=== PATIENT | female | born 1955 | race Caucasian/White ===

== ENCOUNTER 2020-04-01 20:10 | Emergency (ER) | payer MEDICARE ==
[2020-04-01 20:40] VITALS: RESP 18
[2020-04-01] MEDS ORDERED: DEXAMETHASONE SOD PHOSPHATE 10 MG/ML 1 ML VIAL IM STA (20:44)
--- NOTE | 2020-04-01 21:34 | ED ---
General Adult HPI - General Chief complaint: Allergic Reaction Stated complaint: Bee Sting Time Seen by Provider: 04/01/20 20:25 Source: patient, RN notes reviewed, old records reviewed Mode of arrival: ambulatory Limitations: no limitations - History of Present Illness Initial comments: 64-year-old female with history of COPD, oxygen dependent, history of ALLERGY to bee stings presents after being stung twice in the shoulder. Patient had administered Benadryl and epinephrine prior to arrival. The bee sting occurred at approximately 7 PM. She administered the epinephrine prior to severe symptom onset. She denied vomiting or worsening dyspnea. She does have baseline dyspnea secondary to COPD and is currently on home oxygen. She denies tongue or lip swelling. She has no complaints time my evaluation. No chest pain or dyspnea. No abdominal pain nausea vomiting. No rash. - Related Data Previous Rx's Medication Instructions Recorded EPINEPHrine (Auto Inject) [Epipen] 0.3 mg IM ONCE PRN #2 pen 04/01/20 methylPREDNISolone Dose Pack 4 mg PO DIRECTED #21 package 04/01/20 [Medrol Dose Pack] Allergies Allergy/AdvReac Type Severity Reaction Status Date / Time bee venom protein (honey bee) Allergy Anaphylaxis Verified 04/01/20 20:18 Review of Systems ROS Statement: Those systems with pertinent positive or pertinent negative responses have been documented in the HPI. ROS Other: All systems not noted in ROS Statement are negative. Past Medical History Past Medical History: Blood Disorder, Chest Pain / Angina, COPD Additional Past Medical History / Comment(s): pt is O2 dependent 1L History of Any Multi-Drug Resistant Organisms: None Reported Past Surgical History: Orthopedic Surgery Additional Past Surgical History / Comment(s): right leg pins Past Psychological History: No Psychological Hx Reported Smoking Status: Former smoker Past Alcohol Use History: Daily, Occasional Past Drug Use History: None Reported General Exam Limitations: no limitations General appearance: alert, in no apparent distress Head exam: Present: atraumatic, normocephalic Eye exam: Present: normal appearance, PERRL ENT exam: Present: normal exam Neck exam: Present: normal inspection. Absent: tenderness, meningismus Respiratory exam: Present: decreased breath sounds. Absent: respiratory distress Cardiovascular Exam: Present: regular rate, normal rhythm GI/Abdominal exam: Present: soft. Absent: distended, tenderness Extremities exam: Present: normal inspection, normal capillary refill. Absent: pedal edema, calf tenderness Neurological exam: Present: alert, oriented X3, CN II-XII intact. Absent: motor sensory deficit Psychiatric exam: Present: normal affect, normal mood Skin exam: Present: warm, dry, intact. Absent: cyanosis, diaphoretic Course Vital Signs 04/01/20 04/01/20 04/01/20 20:11 20:30 21:27 Temperature 98.3 F Pulse Rate 98 104 H 97 Respiratory 16 18 18 Rate Blood Pressure 159/85 118/95 120/69 O2 Sat by Pulse 97 98 96 Oximetry 04/01/20 22:10 Temperature 98.0 F Pulse Rate 98 Respiratory 18 Rate Blood Pressure 121/80 O2 Sat by Pulse 97 Oximetry Medical Decision Making - Medical Decision Making 64-year-old female presenting for evaluation of suspected ALLERGIC reaction. Patient did take Benadryl and epinephrine prior to arrival and prior to symptom onset to a very elevated anaphylactic reaction. She has no dyspnea, no tongue or lip swelling. Vitals are stable. She's given steroids in the emergency department. She is observed for a total of 3/2 hours after the epinephrine administration. There is no rebound or return of anaphylactic symptoms. She will be prescribed a refill for EpiPen, Medrol Dosepak. She will continue Benadryl. She will return with worsening or changing symptoms. Disposition Clinical Impression: Allergic reaction Disposition: HOME SELF-CARE Condition: Good Instructions (If sedation given, give patient instructions): Anaphylaxis (ED), General Allergic Reaction (ED) Prescriptions: EPINEPHrine (Auto Inject) [Epipen] 0.3 mg IM ONCE PRN #2 pen PRN Reason: Anaphylaxis methylPREDNISolone Dose Pack [Medrol Dose Pack] 4 mg PO DIRECTED #21 package Is patient prescribed a controlled substance at d/c from ED?: No Referrals: Laura Mosher DO [Primary Care Provider] - 1-2 days Time of Disposition: 22:22
[2020-04-01 22:13] VITALS: BP 121/80; PULSE 98; TEMP 98
== END 2020-04-01 22:30 | disposition home or self-care (01) ==
LOC: EC 20:10
DX: T63.441A Toxic effect of venom of bees, accidental (unintentional), initial encounter (principal); J44.9 Chronic obstructive pulmonary disease, unspecified; Z91.030 Bee allergy status; Z87.891 Personal history of nicotine dependence; Z99.81 Dependence on supplemental oxygen
CPT/HCPCS: 99283; 96372; J1100